=== PATIENT | male | born 1945 | race Hispanic/Latino ===

== ENCOUNTER → 2016-10-09 | Outpatient (REF) | payer MEDICARE ==
[2016-10-09 14:03] LABS: ALBUMIN 3.4 GM/DL (3.2-5.2); ALBUMIN/GLOBULIN RATIO 0.87 (1.00-1.93); ALKALINE PHOSPHATASE 50 U/L (45-117); ALT/SGPT 26 U/L (12-78); ANION GAP 8 MEQ/L (8-16); AST/SGOT 21 U/L (15-37); BILIRUBIN,TOTAL 0.3 MG/DL (0.2-1.0); BLOOD UREA NITROGEN 14 MG/DL (7-18); CARBON DIOXIDE LEVEL 28 MEQ/L (21-32); CHLORIDE LEVEL 106 MEQ/L (98-107); CHOLESTEROL LEVEL 160 MG/DL (<200); CREATININE FOR GFR 0.89 MG/DL (0.70-1.30); GLOMERULAR FILTRATION RATE > 60.0 (>42); GLUCOSE, FASTING 100 MG/DL (83-110); POTASSIUM SERUM 4.2 MEQ/L (3.5-5.1); SODIUM LEVEL 142 MEQ/L (136-145); TOTAL PROTEIN 7.3 GM/DL (6.4-8.2); TRIGLYCERIDES LEVEL 122 MG/DL (<150)
== END ==
LOC: M LAB REF 12:59
PROVIDERS: ATTEND Family Medicine Addiction Medicine
DX: E11.9 Type 2 diabetes mellitus without complications (principal)

== ENCOUNTER → 2017-01-09 | Outpatient (REF) | payer MEDICARE ==
[~2017-01-09] MED LIST: ATOR40TA75 PO; GLIP10TA6 PO; JANU100T PO; LEVI20TA39 PO; LISI20TA PO; METF-808 PO
[2017-01-09 13:46] LABS: ALBUMIN 3.4 GM/DL (3.2-5.2); ALBUMIN/GLOBULIN RATIO 0.77 (1.00-1.93); ALKALINE PHOSPHATASE 51 U/L (45-117); ALT/SGPT 30 U/L (12-78); ANION GAP 9 MEQ/L (8-16); AST/SGOT 25 U/L (15-37); BILIRUBIN,TOTAL 0.5 MG/DL (0.2-1.0); BLOOD UREA NITROGEN 11 MG/DL (7-18); CALCIUM LEVEL 8.9 MG/DL (8.8-10.2); CARBON DIOXIDE LEVEL 30 MEQ/L (21-32); CHLORIDE LEVEL 106 MEQ/L (98-107); CHOLESTEROL LEVEL 170 MG/DL (<200); CREATININE FOR GFR 0.88 MG/DL (0.70-1.30); GLOMERULAR FILTRATION RATE > 60.0 (>42); GLUCOSE, FASTING 135 MG/DL (83-110); POTASSIUM SERUM 4.2 MEQ/L (3.5-5.1); SODIUM LEVEL 145 MEQ/L (136-145); TOTAL PROTEIN 7.8 GM/DL (6.4-8.2); TRIGLYCERIDES LEVEL 115 MG/DL (<150)
== END ==
LOC: M LAB REF 12:32
PROVIDERS: ATTEND Family Medicine Addiction Medicine
DX: E11.9 Type 2 diabetes mellitus without complications (principal)

== ENCOUNTER → 2017-02-14 | Outpatient (CLI) | payer MEDICARE ==
--- NOTE | 2017-02-14 11:06 | REP ---
Duplex extremity venous ultrasound: Right lower extremity. History: Right leg pain and swelling times 2 months. Findings: The deep veins are anechoic and fully compressible from the groin to the popliteal fossa in the right lower extremity. Color flow imaging is homogeneous. Spectral Doppler interrogation demonstrates intact respiratory variation in flow and normal manual augmentation of flow. There is no evidence of deep vein thrombosis. Impression: Negative right lower extremity duplex venous ultrasound. No evidence of deep vein thrombosis. Signed by Erich Bhatti MD 02/14/2017 10:57 A
== END ==
LOC: M RAD 09:59
PROVIDERS: ATTEND Family Medicine Addiction Medicine
DX: R22.41 Localized swelling, mass and lump, right lower limb (principal)

== ENCOUNTER 2017-03-15 11:46 | Emergency (ER) | payer MEDICARE ==
[~2017-03-15] VITALS: Ht 177.8 cm; Wt 122.3 kg
[2017-03-15] MEDS ORDERED: JANU100T PO (11:59)
[2017-03-15] MEDS ORDERED: METF-808 PO (11:59)
[2017-03-15] MEDS ORDERED: GLIP10TA6 PO (11:59)
[2017-03-15] MEDS ORDERED: ATOR40TA75 PO (11:59)
[2017-03-15] MEDS ORDERED: LISI20TA PO (11:59)
[2017-03-15 14:01] LABS: BASO # 0.1 10^3/uL (0.0-0.2); BASO % 0.5 % (0.0-1.0); EOS # 0.3 10^3/uL (0.0-0.50); EOS % 2.7 % (0.0-3.0); IMMATURE GRANULOCYTE % 0.5 % (0-0); LYMPH # 3.2 10^3/uL (1.5-4.5); LYMPH % 32.7 % (24.0-44.0); MEAN CORPUSCULAR HEMOGLOBIN 27.4 pg (27.0-33.0); MEAN CORPUSCULAR HGB CONC 32.5 g/dl (32.0-36.5); MEAN CORPUSCULAR VOLUME 84.4 fl (80.0-96.0); MONO # 0.7 10^3/uL (0.0-0.8); MONO % 7.2 % (0.0-5.0); NEUTROPHILS # 5.6 10^3/uL (1.8-7.7); NEUTROPHILS % 56.4 % (36.0-66.0); PLATELET COUNT, AUTOMATED 300 10^3/uL (150-450); RED CELL DISTRIBUTION WIDTH 14.5 % (11.5-14.5); WHITE BLOOD COUNT 9.9 10^3/uL (4.0-10.0)
[2017-03-15 14:35] LABS: ALBUMIN 3.5 GM/DL (3.2-5.2); ALBUMIN/GLOBULIN RATIO 0.69 (1.00-1.93); ALKALINE PHOSPHATASE 53 U/L (45-117); ALT/SGPT 31 U/L (12-78); ANION GAP 7 MEQ/L (8-16); AST/SGOT 18 U/L (7-37); BILIRUBIN,TOTAL 0.3 MG/DL (0.2-1.0); BLOOD UREA NITROGEN 12 MG/DL (7-18); CALCIUM LEVEL 9.6 MG/DL (8.8-10.2); CARBON DIOXIDE LEVEL 29 MEQ/L (21-32); CHLORIDE LEVEL 103 MEQ/L (98-107); GLOMERULAR FILTRATION RATE > 60.0 (>42); GLUCOSE, FASTING 75 MG/DL (83-110); POTASSIUM SERUM 3.8 MEQ/L (3.5-5.1); SODIUM LEVEL 139 MEQ/L (136-145); TOTAL PROTEIN 8.6 GM/DL (6.4-8.2)
[2017-03-15 14:40] LABS: ERYTHROCYTE SEDIMENTATION RATE 16 mm/hr (0-20)
[2017-03-15] MEDS ORDERED: LEVI20TA39 PO (16:23)
[2017-03-15 17:33] VITALS: BP 153/82
[2017-03-18 10:36] LABS: VITAMIN B12 LEVEL 357 PG/ML (247-911)
== END 2017-03-15 17:34 | disposition home or self-care (01) ==
LOC: M ED 11:46
DX: F03.90 Unspecified dementia, unspecified severity, without behavioral disturbance, psychotic disturbance, mood disturbance, and anxiety (principal); I10 Essential (primary) hypertension; Z79.899 Other long term (current) drug therapy

== ENCOUNTER 2017-03-26 08:14 | Emergency (ER) | payer MEDICARE ==
[~2017-03-26] VITALS: Ht 177.8 cm; Wt 120.6 kg
[2017-03-26 09:16] LABS: MEAN CORPUSCULAR HEMOGLOBIN 27.5 pg (27.0-33.0); MEAN CORPUSCULAR HGB CONC 32.6 g/dl (32.0-36.5); MEAN CORPUSCULAR VOLUME 84.3 fl (80.0-96.0); PLATELET COUNT, AUTOMATED 290 10^3/uL (150-450); RED CELL DISTRIBUTION WIDTH 14.4 % (11.5-14.5)
--- NOTE | 2017-03-26 09:20 | REP ---
Clinical: Altered mental status. Comparison: None. Findings: Age-related atrophy and microvascular ischemic changes are appreciated including symmetric ventriculomegaly. The ventricles and sulci are otherwise symmetric. Jain-white differentiation is maintained. There is no evidence for acute intracranial hemorrhage, mass/mass effect, pathology or infarction. No extra-axial fluid collection. Calvarium is intact. Paranasal sinuses and mastoid air cells are clear. Impression: Atrophy and microvascular ischemic changes. No acute intracranial hemorrhage, infarction, or mass/mass effect. Signed by Olvin Mancini MD 03/26/2017 09:11 A
[2017-03-26 09:49] LABS: ALBUMIN 3.2 GM/DL (3.2-5.2); ALBUMIN/GLOBULIN RATIO 0.84 (1.00-1.93); ALKALINE PHOSPHATASE 47 U/L (45-117); ALT/SGPT 30 U/L (12-78); ANION GAP 6 MEQ/L (8-16); AST/SGOT 17 U/L (7-37); BILIRUBIN,DIRECT 0.1 MG/DL (0.0-0.2); BILIRUBIN,TOTAL 0.3 MG/DL (0.2-1.0); BLOOD UREA NITROGEN 12 MG/DL (7-18); CALCIUM LEVEL 8.7 MG/DL (8.8-10.2); CARBON DIOXIDE LEVEL 30 MEQ/L (21-32); CHLORIDE LEVEL 105 MEQ/L (98-107); CREATININE FOR GFR 0.97 MG/DL (0.70-1.30); GLOMERULAR FILTRATION RATE > 60.0 (>42); GLUCOSE, FASTING 212 MG/DL (83-110); SODIUM LEVEL 141 MEQ/L (136-145)
--- NOTE | 2017-03-26 09:59 | REP ---
CHEST, TWO VIEWS: There is no evidence of acute infiltrate. No pleural effusion is seen. The heart is normal in size. The mediastinal silhouette is unremarkable. The visualized osseous structures are intact. IMPRESSION: No acute pulmonary disease. Signed by Arian Jain MD 03/26/2017 04:56 P
[2017-03-26 10:13] LABS: METHADONE URINE NEGATIVE (NEGATIVE)
[2017-03-26 12:58] VITALS: BP 156/77
== END 2017-03-26 12:59 | disposition home or self-care (01) ==
LOC: M ED 08:56
DX: F03.90 Unspecified dementia, unspecified severity, without behavioral disturbance, psychotic disturbance, mood disturbance, and anxiety (principal); E11.9 Type 2 diabetes mellitus without complications; Z79.899 Other long term (current) drug therapy; Z79.84 Long term (current) use of oral hypoglycemic drugs
CPT/HCPCS: 36415; 70450; 71020; 80048; 80076; 80307; 84443; 85027; 99283; G0480

== ENCOUNTER → 2017-07-16 | Outpatient (REF) | payer MEDICARE ==
[2017-07-16 19:52] LABS: ALBUMIN 3.5 GM/DL (3.2-5.2); ALKALINE PHOSPHATASE 50 U/L (45-117); ALT/SGPT 25 U/L (12-78); ANION GAP 8 MEQ/L (8-16); AST/SGOT 17 U/L (7-37); BILIRUBIN,TOTAL 0.5 MG/DL (0.2-1.0); BLOOD UREA NITROGEN 12 MG/DL (7-18); CALCIUM LEVEL 8.7 MG/DL (8.8-10.2); CARBON DIOXIDE LEVEL 29 MEQ/L (21-32); CHLORIDE LEVEL 104 MEQ/L (98-107); CHOLESTEROL LEVEL 169 MG/DL (<200); CHOLESTEROL RISK RATIO 4.121 (<5); CREATININE FOR GFR 0.82 MG/DL (0.70-1.30); GLOMERULAR FILTRATION RATE > 60.0 (>42); GLUCOSE, FASTING 144 MG/DL (70-100); HDL CHOLESTEROL 41 MG/DL (>40); LDL CHOLESTEROL 100.6 MG/DL (<100); NON-HDL-C 128 MG/DL; SODIUM LEVEL 141 MEQ/L (136-145); TOTAL PROTEIN 7.4 GM/DL (6.4-8.2); TRIGLYCERIDES LEVEL 137 MG/DL (<150)
[2017-07-16 21:13] LABS: ESTIMATED AVERAGE GLUCOSE 169 MG/DL (60-110); HEMOGLOBIN A1c 7.5 %
== END ==
LOC: M LAB REF 17:29
DX: E11.9 Type 2 diabetes mellitus without complications (principal)
CPT/HCPCS: 84443

== ENCOUNTER → 2017-10-25 | Outpatient (REF) | payer OTHER ==
[2017-10-25 13:01] LABS: ALBUMIN 3.1 GM/DL (3.2-5.2); ALBUMIN/GLOBULIN RATIO 0.78 (1.00-1.93); ALKALINE PHOSPHATASE 49 U/L (45-117); ALT/SGPT 19 U/L (12-78); ANION GAP 7 MEQ/L (8-16); AST/SGOT 14 U/L (7-37); BILIRUBIN,TOTAL 0.5 MG/DL (0.2-1.0); BLOOD UREA NITROGEN 8 MG/DL (7-18); CALCIUM LEVEL 8.6 MG/DL (8.8-10.2); CARBON DIOXIDE LEVEL 30 MEQ/L (21-32); CHLORIDE LEVEL 106 MEQ/L (98-107); CREATININE FOR GFR 0.73 MG/DL (0.70-1.30); GLOMERULAR FILTRATION RATE > 60.0 (>42); GLUCOSE, FASTING 91 MG/DL (70-100); SODIUM LEVEL 143 MEQ/L (136-145); TOTAL PROTEIN 7.1 GM/DL (6.4-8.2)
[2017-10-25 13:09] LABS: CREATININE, URINE 89.8 MG/DL; MALB URINE SIEMENS < 5.0 MG/L; MAU/CREAT RATIO 5.5 MCG/MG (0.0-30.0)
[2017-10-25 13:20] LABS: ESTIMATED AVERAGE GLUCOSE 143 MG/DL (60-110); HEMOGLOBIN A1c 6.6 %
== END ==
LOC: M LAB REF 11:46
DX: E11.9 Type 2 diabetes mellitus without complications (principal)
CPT/HCPCS: 80053

== ENCOUNTER → 2018-03-04 | Outpatient (REF) | payer OTHER ==
[2018-03-04 20:43] LABS: ESTIMATED AVERAGE GLUCOSE 123 MG/DL (60-110); HEMOGLOBIN A1c 5.9 %
[2018-03-04 20:52] LABS: ALBUMIN 3.7 GM/DL (3.2-5.2); ALKALINE PHOSPHATASE 54 U/L (45-117); ALT/SGPT 19 U/L (12-78); ANION GAP 8 MEQ/L (8-16); AST/SGOT 17 U/L (7-37); BILIRUBIN,TOTAL 0.4 MG/DL (0.2-1.0); BLOOD UREA NITROGEN 6 MG/DL (7-18); CALCIUM LEVEL 9.1 MG/DL (8.8-10.2); CARBON DIOXIDE LEVEL 29 MEQ/L (21-32); CHLORIDE LEVEL 102 MEQ/L (98-107); CREATININE FOR GFR 0.75 MG/DL (0.70-1.30); GLOMERULAR FILTRATION RATE > 60.0 (>42); GLUCOSE, FASTING 65 MG/DL (70-100); POTASSIUM SERUM 3.7 MEQ/L (3.5-5.1); SODIUM LEVEL 139 MEQ/L (136-145); TOTAL PROTEIN 7.4 GM/DL (6.4-8.2)
== END ==
LOC: M LAB REF 19:28
DX: E11.9 Type 2 diabetes mellitus without complications (principal)
CPT/HCPCS: 80053

== ENCOUNTER → 2018-04-04 | Outpatient (REF) | payer OTHER ==
[2018-04-04 14:11] LABS: ALBUMIN 3.5 GM/DL (3.2-5.2); ALBUMIN/GLOBULIN RATIO 0.88 (1.00-1.93); ALKALINE PHOSPHATASE 58 U/L (45-117); ALT/SGPT 21 U/L (12-78); ANION GAP 3 MEQ/L (8-16); AST/SGOT 13 U/L (7-37); BILIRUBIN,TOTAL 0.5 MG/DL (0.2-1.0); BLOOD UREA NITROGEN 8 MG/DL (7-18); CALCIUM LEVEL 9.5 MG/DL (8.8-10.2); CARBON DIOXIDE LEVEL 35 MEQ/L (21-32); CHLORIDE LEVEL 101 MEQ/L (98-107); CREATININE FOR GFR 0.85 MG/DL (0.70-1.30); GLOMERULAR FILTRATION RATE > 60.0 (>42); GLUCOSE, FASTING 82 MG/DL (70-100); POTASSIUM SERUM 3.9 MEQ/L (3.5-5.1); SODIUM LEVEL 139 MEQ/L (136-145); TOTAL PROTEIN 7.5 GM/DL (6.4-8.2)
== END ==
LOC: M LAB REF 13:13
DX: I10 Essential (primary) hypertension (principal); B35.1 Tinea unguium; E11.9 Type 2 diabetes mellitus without complications
CPT/HCPCS: 80053

== ENCOUNTER → 2018-09-25 | Outpatient (REF) | payer OTHER ==
[~2018-09-25] MED LIST changes: -METF-808 PO; +METF-954 PO
[2018-09-25 13:56] LABS: APPEARANCE, URINE CLEAR (CLEAR); BACTERIA, URINE AUTO NEGATIVE (NEGATIVE); BILIRUBIN, URINE AUTO NEGATIVE (NEGATIVE); BLOOD, URINE BLOOD NEGATIVE (NEGATIVE); COLOR, URINE YELLOW (YELLOW); GLUCOSE, URINE (UA) AUTO NEGATIVE (NEGATIVE); KETONE, URINE AUTO NEGATIVE (NEGATIVE); LEUKOCYTE ESTERASE, URINE AUTO NEGATIVE (NEGATIVE); NITRITE, URINE AUTO NEGATIVE (NEGATIVE); PROTEIN, URINE AUTO NEGATIVE (NEGATIVE); RBC, URINE AUTO 0 /HPF (0-3); SPECIFIC GRAVITY URINE AUTO 1.005 (1.002-1.035); SQUAMOUS EPITHELIAL CELL UR AU 0 /HPF (0-6); UROBILINOGEN, URINE AUTO 0.2 mg/dL (0.0-2.0); WBC, URINE AUTO 1 /HPF (0-3)
[2018-09-25 14:00] LABS: BASO % 0.5 % (0.0-1.0); EOS # 0.1 10^3/uL (0.0-0.50); EOS % 1.7 % (0.0-3.0); HEMATOCRIT 42.8 % (42.0-52.0); HEMOGLOBIN 13.9 g/dl (13.5-17.5); LYMPH # 2.2 10^3/uL (1.5-4.5); LYMPH % 28.5 % (24.0-44.0); MEAN CORPUSCULAR HEMOGLOBIN 27.9 pg (27.0-33.0); MEAN CORPUSCULAR HGB CONC 32.5 g/dl (32.0-36.5); MEAN CORPUSCULAR VOLUME 85.8 fl (80.0-96.0); MONO # 0.5 10^3/uL (0.0-0.8); MONO % 6.3 % (0.0-5.0); NEUTROPHILS # 4.7 10^3/uL (1.8-7.7); NEUTROPHILS % 62.2 % (36.0-66.0); PLATELET COUNT, AUTOMATED 320 10^3/uL (150-450); RED BLOOD COUNT 4.99 10^6/uL (4.30-6.10); WHITE BLOOD COUNT 7.6 10^3/uL (4.0-10.0)
[2018-09-25 14:15] LABS: ALBUMIN 3.5 GM/DL (3.2-5.2); ALT/SGPT 22 U/L (12-78); BILIRUBIN,TOTAL 0.4 MG/DL (0.2-1.0); BLOOD UREA NITROGEN 9 MG/DL (7-18); CALCIUM LEVEL 8.8 MG/DL (8.8-10.2); CARBON DIOXIDE LEVEL 32 MEQ/L (21-32); CHLORIDE LEVEL 101 MEQ/L (98-107); CHOLESTEROL LEVEL 135 MG/DL (<200); CHOLESTEROL RISK RATIO 2.934 (<5); CREATININE FOR GFR 0.84 MG/DL (0.70-1.30); FREE T4 0.98 NG/DL (0.76-1.46); GLOMERULAR FILTRATION RATE > 60.0 (>42); GLUCOSE, FASTING 41 MG/DL (70-100); HDL CHOLESTEROL 46 MG/DL (>40); LDL CHOLESTEROL 72 MG/DL (<100); NON-HDL-C 89 MG/DL; SODIUM LEVEL 138 MEQ/L (136-145); TOTAL 25(OH) VITAMIN D 20.8 NG/ML (30.0-100.0); TOTAL PROTEIN 7.6 GM/DL (6.4-8.2); TRIGLYCERIDES LEVEL 87 MG/DL (<150)
[2018-09-25 14:30] LABS: HEMOGLOBIN A1c 5.7 %
[2018-09-27 00:06] LABS: Lyme Disease IgG/IgM Antibodie <0.91 ISR (0.00-0.90); Lyme Disease IgM Ab Quantitati <0.80 index (0.00-0.79)
== END ==
LOC: M LAB REF 13:25
PROVIDERS: ATTEND Family Medicine
DX: Z12.5 Encounter for screening for malignant neoplasm of prostate (principal); Z13.228 Encounter for screening for other metabolic disorders; Z79.899 Other long term (current) drug therapy
CPT/HCPCS: 80053; 80061; 81001; 82306; 83036; 84439; 84443; 85025; 86617; G0103

== ENCOUNTER → 2022-05-16 | Outpatient (CLI) | payer MEDICARE ==
[~2022-05-16] MED LIST changes: -LISI20TA PO; +LISI20TA35 PO; +METF-1191 PO; -METF-954 PO
[2022-05-16 12:50] LABS: THYROID STIMULATING HORMONE 1.187 uIU/ML (0.55-4.78)
[2022-05-16 12:51] LABS: FOLATE 15.99 NG/ML (>5.4)
[2022-05-20 06:37] LABS: VITAMIN B1 LEVEL WHOLE BLOOD 110.4 nmol/L (66.5-200.0); VITAMIN B6,PYRIDOXAL PHOSPHATE 4.6 ug/L (3.4-65.2)
== END ==
LOC: M LAB 11:28
PROVIDERS: ATTEND Psychiatry & Neurology Neurology
DX: E03.9 Hypothyroidism, unspecified (principal); R41.3 Other amnesia; E53.9 Vitamin B deficiency, unspecified

== ENCOUNTER → 2022-06-28 | Outpatient (REF) | payer MEDICARE ==
[2022-06-28 12:39] LABS: ALBUMIN 3.3 G/DL (3.2-5.2); ALKALINE PHOSPHATASE 44 U/L (46-116); ALT/SGPT 20 U/L (7.0-40); AST/SGOT 22 U/L (<34); BILIRUBIN,TOTAL 0.5 MG/DL (0.3-1.2); BLOOD UREA NITROGEN 11 MG/DL (9-23); CARBON DIOXIDE LEVEL 34 MMOL/L (20-31); CHLORIDE LEVEL 105 MMOL/L (98-107); CHOLESTEROL LEVEL 165 MG/DL (<200); CHOLESTEROL RISK RATIO 3.67 (<5); CREATININE FOR GFR 0.81 MG/DL (0.70-1.30); GLOMERULAR FILTRATION RATE > 60.0 (>42); GLUCOSE, FASTING 88 MG/DL (74-106); HDL CHOLESTEROL 44.9 MG/DL (>40); LDL CHOLESTEROL 99.3 MG/DL (<100); NON-HDL-C 120 MG/DL; POTASSIUM SERUM 3.8 MMOL/L (3.5-5.1); SODIUM LEVEL 143 MMOL/L (136-145); TOTAL PROTEIN 6.7 G/DL (5.7-8.2); TRIGLYCERIDES LEVEL 104 MG/DL (<150)
[2022-06-28 12:40] LABS: THYROID STIMULATING HORMONE 1.682 uIU/ML (0.55-4.78)
[2022-06-28 13:10] LABS: HEMOGLOBIN A1c 6.2 % (4.0-6.0)
== END ==
LOC: M LAB REF 11:59
PROVIDERS: ATTEND Family Medicine Addiction Medicine
DX: E11.9 Type 2 diabetes mellitus without complications (principal)

== ENCOUNTER → 2022-09-24 | Outpatient (REF) | payer MEDICARE ==
[2022-09-24 12:02] LABS: ALBUMIN 3.4 G/DL (3.2-5.2); ALKALINE PHOSPHATASE 48 U/L (46-116); ALT/SGPT 25 U/L (7.0-40); AST/SGOT 20 U/L (<34); BILIRUBIN,TOTAL 0.6 MG/DL (0.3-1.2); BLOOD UREA NITROGEN 12 MG/DL (9-23); CALCIUM LEVEL 8.9 MG/DL (8.3-10.6); CARBON DIOXIDE LEVEL 30 MMOL/L (20-31); CHLORIDE LEVEL 104 MMOL/L (98-107); CHOLESTEROL LEVEL 173 MG/DL (<200); CHOLESTEROL RISK RATIO 4.09 (<5); CREATININE FOR GFR 0.89 MG/DL (0.70-1.30); GLOMERULAR FILTRATION RATE > 60.0 (>42); GLUCOSE, FASTING 153 MG/DL (74-106); HDL CHOLESTEROL 42.2 MG/DL (>40); LDL CHOLESTEROL 100.2 MG/DL (<100); NON-HDL-C 130.8 MG/DL; POTASSIUM SERUM 3.9 MMOL/L (3.5-5.1); SODIUM LEVEL 138 MMOL/L (136-145); TOTAL PROTEIN 6.8 G/DL (5.7-8.2); TRIGLYCERIDES LEVEL 153 MG/DL (<150)
[2022-09-24 12:03] LABS: HEMOGLOBIN A1c 6.4 % (4.0-6.0); THYROID STIMULATING HORMONE 2.044 uIU/ML (0.55-4.78)
== END ==
LOC: M LAB REF 11:05
PROVIDERS: ATTEND Family Medicine Addiction Medicine
DX: E11.9 Type 2 diabetes mellitus without complications (principal)

== ENCOUNTER → 2023-04-02 | Outpatient (REF) | payer MEDICARE ==
[2023-04-02 12:24] LABS: ALBUMIN 3.5 G/DL (3.2-5.2); ALKALINE PHOSPHATASE 55 U/L (46-116); ALT/SGPT 28 U/L (7.0-40); AST/SGOT 20 U/L (<34); BILIRUBIN,TOTAL 0.6 MG/DL (0.3-1.2); BLOOD UREA NITROGEN 15 MG/DL (9-23); CALCIUM LEVEL 9.6 MG/DL (8.3-10.6); CARBON DIOXIDE LEVEL 32 MMOL/L (20-31); CHLORIDE LEVEL 103 MMOL/L (98-107); CHOLESTEROL LEVEL 187 MG/DL (<200); CHOLESTEROL RISK RATIO 4.13 (<5); CREATININE FOR GFR 0.88 MG/DL (0.70-1.30); GLOMERULAR FILTRATION RATE > 60.0 (>42); GLUCOSE, FASTING 110 MG/DL (74-106); HDL CHOLESTEROL 45.2 MG/DL (>40); NON-HDL-C 141.8 MG/DL; POTASSIUM SERUM 4.2 MMOL/L (3.5-5.1); SODIUM LEVEL 139 MMOL/L (136-145); THYROID STIMULATING HORMONE 1.971 uIU/ML (0.55-4.78); TOTAL PROTEIN 7.2 G/DL (5.7-8.2); TRIGLYCERIDES LEVEL 159 MG/DL (<150)
[2023-04-02 12:46] LABS: CREATININE, URINE 105.8 MG/DL
[2023-04-02 12:47] LABS: MALB URINE SIEMENS < 3.0 MG/L; MAU/CREAT RATIO 2.8 MCG/MG (0.0-30.0)
[2023-04-02 13:02] LABS: HEMOGLOBIN A1c 6.5 % (4.0-6.0)
== END ==
LOC: M LAB REF 11:32
PROVIDERS: ATTEND Family Medicine Addiction Medicine
DX: E11.9 Type 2 diabetes mellitus without complications (principal)

== ENCOUNTER → 2023-12-16 | Outpatient (REF) | payer MEDICARE ==
[2023-12-16 13:59] LABS: HEMOGLOBIN A1c 6.2 % (4.0-6.0)
[2023-12-16 14:15] LABS: ALBUMIN 3.3 G/DL (3.2-5.2); ALKALINE PHOSPHATASE 56 U/L (46-116); ALT/SGPT 32 U/L (7.0-40); AST/SGOT 18 U/L (<34); BILIRUBIN,TOTAL 0.4 MG/DL (0.3-1.2); BLOOD UREA NITROGEN 11 MG/DL (9-23); CARBON DIOXIDE LEVEL 29 MMOL/L (20-31); CHLORIDE LEVEL 107 MMOL/L (98-107); CHOLESTEROL LEVEL 160 MG/DL (<200); CHOLESTEROL RISK RATIO 4.34 (<5); CREATININE FOR GFR 0.87 MG/DL (0.70-1.30); GLOMERULAR FILTRATION RATE > 60.0 (>42); GLUCOSE, FASTING 112 MG/DL (74-106); HDL CHOLESTEROL 36.8 MG/DL (>40); LDL CHOLESTEROL 99.4 MG/DL (<100); NON-HDL-C 123.2 MG/DL; POTASSIUM SERUM 3.7 MMOL/L (3.5-5.1); SODIUM LEVEL 141 MMOL/L (136-145); TOTAL PROTEIN 6.8 G/DL (5.7-8.2); TRIGLYCERIDES LEVEL 119 MG/DL (<150)
[2023-12-16 14:16] LABS: THYROID STIMULATING HORMONE 1.454 uIU/ML (0.55-4.78)
== END ==
LOC: M LAB REF 13:14
PROVIDERS: ATTEND Family Medicine Addiction Medicine
DX: E11.9 Type 2 diabetes mellitus without complications (principal)

== ENCOUNTER → 2024-06-22 | Outpatient (REF) | payer MEDICARE ==
[~2024-06-22] MED LIST changes: +GLIP10TA15 PO; -GLIP10TA6 PO
[2024-06-22 14:16] LABS: ALBUMIN 3.4 G/DL (3.2-5.2); ALKALINE PHOSPHATASE 61 U/L (40-129); ALT/SGPT 31 U/L (7.0-40); AST/SGOT 25 U/L (<34); BILIRUBIN,TOTAL 0.4 MG/DL (0.3-1.2); BLOOD UREA NITROGEN 13 MG/DL (9-23); CALCIUM LEVEL 9.4 MG/DL (8.3-10.6); CARBON DIOXIDE LEVEL 32 MMOL/L (20-31); CHLORIDE LEVEL 103 MMOL/L (98-107); CHOLESTEROL LEVEL 167 MG/DL (<200); CHOLESTEROL RISK RATIO 3.93 (<5); CREATININE FOR GFR 0.77 MG/DL (0.70-1.30); GLOMERULAR FILTRATION RATE > 60.0 (>42); GLUCOSE, FASTING 129 MG/DL (74-106); HDL CHOLESTEROL 42.4 MG/DL (>40); LDL CHOLESTEROL 96.8 MG/DL (<100); NON-HDL-C 124.6 MG/DL; POTASSIUM SERUM 3.8 MMOL/L (3.5-5.1); SODIUM LEVEL 141 MMOL/L (136-145); THYROID STIMULATING HORMONE 1.845 uIU/ML (0.55-4.78); TOTAL PROTEIN 7.3 G/DL (5.7-8.2); TRIGLYCERIDES LEVEL 139 MG/DL (<150)
== END ==
LOC: M LAB REF 11:57
PROVIDERS: ATTEND Family Medicine Addiction Medicine
DX: E11.9 Type 2 diabetes mellitus without complications (principal)

== ENCOUNTER → 2024-12-25 | Outpatient (REF) | payer MEDICARE, OTHER ==
[~2024-12-25] MED LIST changes: +ACET-683 PO; +MEMA10TA PO; +METF850T4 PO; +METH-1164 PO; +RIVA1DIS TD
[2024-12-25 15:34] LABS: CREATININE, URINE 125.0 MG/DL; MALB URINE SIEMENS < 3.0 MG/L
[2024-12-25 17:00] LABS: ALT/SGPT 26.0 U/L (7.0-40); AST/SGOT 24.0 U/L (<34); CALCIUM LEVEL 9.4 MG/DL (8.3-10.6); CARBON DIOXIDE LEVEL 30.0 MMOL/L (20-31); CHLORIDE LEVEL 103.0 MMOL/L (98-107); CHOLESTEROL LEVEL 166.0 MG/DL (<200); CHOLESTEROL RISK RATIO 4.11 (<5); CREATININE FOR GFR 0.81 MG/DL (0.70-1.30); GLOMERULAR FILTRATION RATE 89.7 (>42); LDL CHOLESTEROL 98.1 MG/DL (<100); NON-HDL-C 125.7 MG/DL; POTASSIUM SERUM 4.3 MMOL/L (3.5-5.1); SODIUM LEVEL 143.0 MMOL/L (136-145); TRIGLYCERIDES LEVEL 138.0 MG/DL (<150)
[2024-12-25 17:14] LABS: ESTIMATED AVERAGE GLUCOSE 137.0 MG/DL (60-110)
== END ==
LOC: M LAB REF 14:15
PROVIDERS: ATTEND Family Medicine Addiction Medicine
DX: E11.69 Type 2 diabetes mellitus with other specified complication (principal)